=== PATIENT | male | born 1965 | race Caucasian/White ===

== ENCOUNTER 2019-05-22 19:39 | Emergency (ER) | payer OTHER ==
[~2019-05-22] VITALS: Ht 185.4 cm; Wt 84.0 kg
[2019-05-22 20:40] VITALS: BP 140/84
== END 2019-05-22 21:36 ==
LOC: ER 19:40
DX: Z04.1 Encounter for examination and observation following transport accident (principal); F10.10 Alcohol abuse, uncomplicated; V29.9XXA Motorcycle rider (driver) (passenger) injured in unspecified traffic accident, initial encounter; Y93.89 Activity, other specified; Y92.488 Other paved roadways as the place of occurrence of the external cause; Y99.8 Other external cause status; Y90.9 Presence of alcohol in blood, level not specified
CPT/HCPCS: 71045; 93005; 99283